=== PATIENT | female | born 1985 | race Caucasian/White ===

== ENCOUNTER 2017-01-17 23:19 | Emergency (ER) | payer OTHER ==
[~2017-01-17 23:19] MED LIST: ATIVAN1 MG PO; IBUPROFEN800 MG PO; LAMOTRIGINE100 MG PO; MEDICAL MARIJUANA; TRAMADOL HCL50 MG PO
--- OUTSIDE RECORDS SUMMARY | 2017-01-17 23:31 | XMS ---
Demographics + + + | Address | [facility] | | | [address] | | | [place] [address] | + + + | Preferred Language | Unknown | + + + | Marital Status | Unknown | + + + | Mu-Ism Affiliation | Unknown | + + + | Race | Unknown | + + + | Ethnic Group | Unknown | + + + Author + + + | Author | [facility] | + + + | Organization | [facility] | + + + | Address | [address] | | | [place] [address] | + + + | Phone | | + + + Care Team Providers + + + + | Care Chore Tender Name | Role | Phone | + + + + Unavailable | Unavailable | + + + + PROBLEMS + + + + + + + + | Type | Condition | ICD9-CM | [id number] | Onset | Condition | SNOMED | | | | Code | Code | Dates | Status | Code | + + + + + + + + | Assessment | Pain in | | M79.672 | 05 December, | Active | [id number] | | | left foot | | | 2017 | | [address] | + + + + + + + + | Problem | Right knee | | S89.91XA | | Active | [id number] | | | injury | | | | | 6610241 | + + + + + + + + | Problem | Knee | S89.90XA | | | Active | 604764146 | | | injury | | | | | | + + + + + + + + | Problem | Pain in | | M79.672 | | Active | 1038080129 | | | left foot | | | | | [address] | + + + + + + + + | Problem | Other | G89.29 | | | Active | 12912229 | | | chronic | | | | | | | | pain | | | | | | + + + + + + + + | Problem | Gastroente | | K52.9 | | Active | 69848439 | | | ritis | | | | | | + + + + + + + + | Problem | Left knee | | S89.92XA | | Active | 731620879 | | | injury | | | | | | + + + + + + + + | Problem | Pain in | | M79.671 | | Active | 8857188562 | | | right foot | | | | | [address] | + + + + + + + + | Problem | Viral | 079.99 | | | Active | 44127224 | | | illness | | | | | | + + + + + + + + ALLERGIES + + + + +--------+ | Substance | Reaction | Event Type | Date | Status | + + + + +--------+ | Vicodin | Unknown | Drug Allergy | November, | Active | + + + + +--------+ SOCIAL HISTORY No smoking Hx information available PLAN OF CARE + +---------+ | Activity | Details | + +---------+ +---+ | | +---+ + + + | Pending Test | X ray : Foot AP/L/O Weightbearing | | | (3+views)-RT DR. SIU | + + + | Pending Test | X ray : Foot AP/L/O Weightbearing | | | (3+views)- LT DR. SIU | + + + | | prEthan william: | + + + VITAL SIGNS + + + + | Height | 66 in | 2016-12-05 | + + + + | Weight | 174.0 lbs | 2016-12-05 | + + + + | BMI | 28.08 kg/m2 | 2016-12-05 | + + + + | Temperature | 98.2 degrees Fahrenheit | 2016-12-05 | + + + + | Heart Rate | 59 /min | 2016-12-05 | + + + + | Blood pressure systolic | 150 mm Hg | 2016-12-05 | + + + + | Blood pressure diastolic | 98 mm Hg | 2016-12-05 | + + + + MEDICATIONS + + + + + + + +--------+ | Medicati | Instruct | Dosage | Frequenc | Start | End Date | Duration | Status | | on | ions | | y | Date | | | | + + + + + + + +--------+ | Diclofen | Orally | 1 tablet | 12h | 05 December, | 15 Dec, | 30 | Active | | ac | Twice a | with | | 2016 | 2016 | day(s) | | | Sodium | day | food or | | | | | | | 75 MG | | milk | | | | | | + + + + + + + +--------+ RESULTS No Results PROCEDURES + + + + + | Procedure | Date Ordered | Related Diagnosis | Body Site | + + + + + | Est Level III | December 05, 2016 | | | | Intermediate | | | | + + + + + | [facility] MED/CURRENT | December 05, 2016 | | | | MED MERGE | | | | + + + + + | DOC MEDS VERIFIED | December 05, 2016 | | | | W/PT OR RE | | | | + + + + + IMMUNIZATIONS No Known Immunizations"
--- OUTSIDE RECORDS SUMMARY | 2017-01-17 23:31 | XMS ---
Demographics + + + | Address | [facility] | | | [address] | | | [place] [address] | + + + | Preferred Language | Unknown | + + + | Marital Status | Unknown | + + + | Sikh Affiliation | Unknown | + + + | Race | Unknown | + + + | Ethnic Group | Unknown | + + + Author + + + | Author | [facility] | + + + | Organization | [facility] | + + + | Address | [address] | | | [place] [address] | + + + | Phone | | + + + Care Team Providers + + + + | Care Paramedic Name | Role | Phone | + + + + Unavailable | Unavailable | + + + + PROBLEMS +---------+ + + +--------+ + + | Type | Condition | ICD9-CM | [id number] | Onset | Condition | SNOMED | | | | Code | Code | Dates | Status | Code | +---------+ + + +--------+ + + | Problem | Right knee | | S89.91XA | | Active | [id number] | | | injury | | | | | 1343532 | +---------+ + + +--------+ + + | Problem | Knee | S89.90XA | | | Active | 661869656 | | | injury | | | | | | +---------+ + + +--------+ + + | Problem | Pain in | | M79.672 | | Active | [id number] | | | left foot | | | | | [address] | +---------+ + + +--------+ + + | Problem | Other | G89.29 | | | Active | 82553482 | | | chronic | | | | | | | | pain | | | | | | +---------+ + + +--------+ + + | Problem | Gastroente | | K52.9 | | Active | 02663019 | | | ritis | | | | | | +---------+ + + +--------+ + + | Problem | Left knee | | S89.92XA | | Active | 357331850 | | | injury | | | | | | +---------+ + + +--------+ + + | Problem | Pain in | | M79.671 | | Active | 0420269145 | | | right foot | | | | | [address] | +---------+ + + +--------+ + + | Problem | Viral | 079.99 | | | Active | 55557440 | | | illness | | | | | | +---------+ + + +--------+ + + ALLERGIES Unknown Allergies SOCIAL HISTORY No smoking Hx information available PLAN OF CARE VITAL SIGNS MEDICATIONS Unknown Medications RESULTS No Results PROCEDURES No Known procedures IMMUNIZATIONS No Known Immunizations"
--- OUTSIDE RECORDS SUMMARY | 2017-01-17 23:33 | XMS ---
Demographics + + + | Address | [facility] | | | [place] [address] | + + + | Preferred Language | Unknown | + + + | Marital Status | Unknown | + + + | Islam Affiliation | Unknown | + + + | Race | Unknown | + + + | Ethnic Group | Unknown | + + + Author + + + | Author | [facility] | + + + | Organization | [facility] | + + + | Address | [address] | | | [place] [address] | + + + | Phone | | + + + Care Team Providers + + + + | Care Funeral Home Assistant Name | Role | Phone | + + + + Unavailable | Unavailable | + + + + PROBLEMS + + + + + + + + | Type | Condition | ICD9-CM | [id number] | Onset | Condition | SNOMED | | | | Code | Code | Dates | Status | Code | + + + + + + + + | Assessment | Flu-like | R68.89 | | 17 Apr, | Active | [id number] | | | symptoms | | | 2017 | | | + + + + + + + + | Problem | Viral | 079.99 | | | Active | 94536195 | | | illness | | | | | | + + + + + + + + | Problem | Gastroente | | K52.9 | | Active | 45777607 | | | ritis | | | | | | + + + + + + + + | Problem | Knee | S89.90XA | | | Active | 947399903 | | | injury | | | | | | + + + + + + + + | Assessment | Gastroente | | K52.9 | 17 Apr, | Active | 24221698 | | | ritis | | | 2016 | | | + + + + + + + + | Problem | Left knee | | S89.92XA | | Active | | | | injury | | | | | | + + + + + + + + | Problem | Right knee | | S89.91XA | | Active | 4904354197 | | | injury | | | | | 2958883 | + + + + + + + + ALLERGIES + + + + +--------+ | Substance | Reaction | Event Type | Date | Status | + + + + +--------+ | Vicodin | Unknown | Drug Allergy | Oct, | Active | + + + + +--------+ SOCIAL HISTORY No smoking Hx information available PLAN OF CARE VITAL SIGNS + + + + | Height | 66 in | 2016-11-06 | + + + + | Weight | 171.8 lbs | 2016-11-06 | + + + + | BMI | 27.73 kg/m2 | 2016-11-06 | + + + + | Temperature | 97.8 degrees Fahrenheit | 2016-11-06 | + + + + | Heart Rate | 65 /min | 2016-11-06 | + + + + | Blood pressure systolic | 150 mm Hg | 2016-11-06 | + + + + | Blood pressure diastolic | 93 mm Hg | 2016-11-06 | + + + + MEDICATIONS + + + + +--------+ + +--------+ | Medicati | Instruct | Dosage | Frequenc | Start | End Date | Duration | Status | | on | ions | | y | Date | | | | + + + + +--------+ + +--------+ | Lamotrig | Orally | 1 tablet | 12h | | | | Active | | ine 50 | Twice a | on the | | | | | | | MG | day | tongue | | | | | | | | | and | | | | | | | | | allow to | | | | | | | | | | | | | | | | | | dissolve | | | | | | + + + + +--------+ + +--------+ | Zofran | Orally | 1 tablet | 8h | | | 5 day(s) | Active | | ODT 4 mg | every 8 | on the | | | | | | | | hrs | tongue | | | | | | | | | and | | | | | | | | | allow to | | | | | | | | | | | | | | | | | | dissolve | | | | | | + + + + +--------+ + +--------+ | Tramadol | | | | | | | Active | | HCl | | | | | | | | + + + + +--------+ + +--------+ RESULTS + +--------+------+ + | Name | Result | Date | Reference Range | + +--------+------+ + | Rapid Flu, A & B | | | | | (IH) | | | | + +--------+------+ + PROCEDURES + + + + + | Procedure | Date Ordered | Related Diagnosis | Body Site | + + + + + | INFLUENZA ASSAY | November 06, 2016 | | | | W/OPTIC | | | | + + + + + | Est Level III | November 06, 2016 | | | | Intermediate | | | | + + + + + IMMUNIZATIONS No Known Immunizations"
--- OUTSIDE RECORDS SUMMARY | 2017-01-17 23:33 | XMS ---
Demographics + + + | Address | [facility] | | | [address] | | | [place] [address] | + + + | Preferred Language | Unknown | + + + | Marital Status | Unknown | + + + | Methodist Affiliation | Unknown | + + + | Race | Unknown | + + + | Ethnic Group | Unknown | + + + Author + + + | Author | [facility] | + + + | Organization | [facility] | + + + | Address | [address] | | | [place] [address] | + + + | Phone | | + + + Care Team Providers + + + + | Care Linoleum Tile Floor Layer Name | Role | Phone | + + + + Unavailable | Unavailable | + + + + PROBLEMS +---------+ + + +--------+ + + | Type | Condition | ICD9-CM | PGO83-BE | Onset | Condition | SNOMED | | | | Code | Code | Dates | Status | Code | +---------+ + + +--------+ + + | Problem | Knee | S89.90XA | | | Active | [id number] | | | injury | | | | | | +---------+ + + +--------+ + + | Problem | Left knee | | S89.92XA | | Active | 226741500 | | | injury | | | | | | +---------+ + + +--------+ + + | Problem | Right knee | | S89.91XA | | Active | 0196924045 | | | injury | | | | | 7707087 | +---------+ + + +--------+ + + | Problem | Inferior | M77.30 | | | Active | 67311381 | | | calcaneal | | | | | | | | bone spur | | | | | | +---------+ + + +--------+ + + | Problem | Pain in | | M79.672 | | Active | 9463059656 | | | left foot | | | | | [address] | +---------+ + + +--------+ + + | Problem | Viral | 079.99 | | | Active | 51749909 | | | illness | | | | | | +---------+ + + +--------+ + + | Problem | Gastroente | | K52.9 | | Active | 08008045 | | | ritis | | | | | | +---------+ + + +--------+ + + | Problem | Other | G89.29 | | | Active | 08791468 | | | chronic | | | | | | | | pain | | | | | | +---------+ + + +--------+ + + | Problem | Pain in | | M79.671 | | Active | [id number] | | | right foot | | | | | [address] | +---------+ + + +--------+ + + ALLERGIES + + + + +--------+ | Substance | Reaction | Event Type | Date | Status | + + + + +--------+ | Vicodin | Unknown | Drug Allergy | Dec, | Active | + + + + +--------+ SOCIAL HISTORY No smoking Hx information available PLAN OF CARE + +---------+ | Activity | Details | + +---------+ +---+ | | +---+ + + + | Follow Up | prn Reason:null | + + + VITAL SIGNS + + + + | Height | 66 in | 2016-12-27 | + + + + | Weight | 171.2 lbs | 2016-12-27 | + + + + | BMI | 27.63 kg/m2 | 2016-12-27 | + + + + | Temperature | 97.9 degrees Fahrenheit | 2016-12-27 | + + + + | Heart Rate | 69 /min | 2016-12-27 | + + + + | Blood pressure systolic | 124 mm Hg | 2016-12-27 | + + + + | Blood pressure diastolic | 80 mm Hg | 2016-12-27 | + + + + MEDICATIONS + + + + + + + +--------+ | Medicati | Instruct | Dosage | Frequenc | Start | End Date | Duration | Status | | on | ions | | y | Date | | | | + + + + + + + +--------+ | Diclofen | Orally | 1 tablet | 12h | 16 November, | 15 Dec, | 30 | Active | | ac | Twice a | with | | 2016 | 2016 | day(s) | | | Sodium | day | food or | | | | | | | 75 MG | | milk | | | | | | + + + + + + + +--------+ | Capsaici | External | 1 | 8h | Dec, | 6 Feb, | 30 | Active | | n 0.1 % | ly Three | applicat | | 2017 | 2016 | day(s) | | | | times a | ion to | | | | | | | | day | affected | | | | | | | | | area as | | | | | | | | | needed | | | | | | + + + + + + + +--------+ RESULTS No Results PROCEDURES + + + + + | Procedure | Date Ordered | Related Diagnosis | Body Site | + + + + + | Est Level III | December 27, 2016 | | | | Intermediate | | | | + + + + + IMMUNIZATIONS No Known Immunizations"
[2017-01-17] MEDS ORDERED: DICLOFENAC SODI75 MG PO (23:36)
== END 2017-01-18 01:32 | disposition home or self-care (01) ==
LOC: ED 23:19
DX: R10.31 Right lower quadrant pain (principal); R10.32 Left lower quadrant pain; E87.6 Hypokalemia; F31.9 Bipolar disorder, unspecified; Z90.710 Acquired absence of both cervix and uterus; Z88.5 Allergy status to narcotic agent; Z88.8 Allergy status to other drugs, medicaments and biological substances
CPT/HCPCS: 74176; 80053; 81001; 85025; 99284